=== PATIENT | female | born 1945 | race Caucasian/White ===

== ENCOUNTER 2016-11-29 16:13 | Emergency (ER) | payer MEDICARE ==
[~2016-11-29] VITALS: Ht 144.8 cm; Wt 76.8 kg
[~2016-11-29 16:13] MED LIST: ESTR2TAB2 PO; FLUT16SP2 NS; HYDR-3797 PO; HYDR25TA4 PO; LISI40TA PO; METH750T3 PO; PREG75CA PO; TRAZ150T72 PO; VENL75TA3 PO
[2016-11-29 16:52] VITALS: BP 185/101; PULSE 79; RESP 16; O2SAT 99
--- NOTE | 2016-11-29 17:42 | DRSVH ---
PROCEDURE: X-RAY PELVIS W/LAT HIP (RT) ([id number]) INDICATIONS: fall TECHNIQUE: AP pelvis with lateral view(s) of the right hip(s). COMPARISON: None. FINDINGS: Bones: No fractures or dislocations. Pelvic ring appears intact. No suspicious bony lesions. Ther e are bilateral total hip arthroplasties present. Soft tissues: The visualized bowel gas pattern is normal. No suspicious soft tissue calcifications. IMPRESSION: No fracture of the pelvic ring or right hip is seen. Dictated by: Ron De Luna M.D. on 11/29/2016 at 17:39 Approved by: Ron De Luna M.D. on 11/29/2016 at 17:40
--- NOTE | 2016-11-29 20:55 | ED.REPORT ---
HPI-General Illness Date of Service Nov 29, 2016 ED Provider: John Dacosta MD Pt is a 71 year old female with a history of hypertension and degenerative joint disease who presents to the ED c/o constant right hip pain s/p falling onset two days ago. She states that she stumbled, turned wrong, and fell on her hip. She reports that her pain has progressively worsened and is exacerbated by walking and bearing weight. She describes her pain as tight "muscle spasm" and rates the severity now as 7/10 and 8/10 at its worst. She denies lightheadedness , LOC, chest pain, SOB, fever, chills, SOB, palpitations, diarrhea, abdominal pain, vision changes, headache, weakness on one side, or any other symptoms. Nursing Notes Stated Complaint: RIGHT HIP PAIN, FALL Chief Complaint: Extremity Trauma Nursing Notes Reviewed: Yes Allergies: Coded Allergies: TAPE (Verified Allergy, Severe, Blisters, 08/28/13) acetaminophen (Unverified Adverse Reaction, Severe, ITCHING (FROM HYDROCODONE), 08/28/13) codeine (Unverified Adverse Reaction, Severe, ITCHING, 08/28/13) hydrocodone (Verified Adverse Reaction, Severe, itching, 08/28/13) morphine (Verified Adverse Reaction, Intermediate, nausea / nightmares, 08/28/13) Scheduled Estradiol (Estradiol) 2 Mg Tablet 2 MG PO DAILY Fluticasone Propionate (Flonase Nasal) 16 Gm Cougar.susp 2 SPRAYS NS DAILY Hydrochlorothiazide (Hydrochlorothiazide) 25 Mg Tablet 25 MG PO DAILY Lisinopril (Lisinopril) 40 Mg Tablet 40 MG PO DAILY Pregabalin (Lyrica) 75 Mg Capsule 75 MG PO BID Venlafaxine (Venlafaxine) 75 Mg Tablet 225 MG PO DAILYWM IMMEDIATE RELEASE-VERIFIED WITH [facility] Scheduled PRN Hydrocodone-Acetaminophen 5-325 mg (Hydrocodone-Acetaminophen 5-325 mg) 1 Each Tablet 1 TABLET PO Q4H PRN PRN For Pain Hydroxyzine Pamoate (HydrOXYzine Pamoate) 25 Mg Capsule 25 MG PO BID PRN PRN For Insomnia Methocarbamol (Methocarbamol) 750 Mg Tablet 750-1,500 MG PO Q12 PRN PRN For Spasm Trazodone (Trazodone) 150 Mg Tablet 150 MG PO HS PRN PRN prn General Time Seen by MD: 19:58 Chief Complaint Other (Right hip pain ) Hx Obtained From: Patient Arrived By: Walk-in Sudden in Onset?: No Onset Occurred: 2 days ago Symptom Duration: Constant Caused by: Fall on ground Location: : Hip right Quality: Painful Severity: Current: Pain level 7 out of 10 Severity: Maximum: Pain level 8 out of 10 Pertinent Negative: Pt denies other symptoms Exacerbated by: Moving affected area Recent Healthcare: No recent hospitalization, Recent doctor visit Similar Sx Previous: No Past Medical History Past Medical History Allergies Degenerative joint disease Depression Eczema Reports: Hypertension Past Surgical History Bilateral knee replacements Bilateral hip replacements Right shoulder replacement LIPO Reports: Cholecystectomy, Hysterectomy Social History Alcohol Use: Denies alcohol use Other Social History: Good social support Ambulatory Status Independent Review of Systems Full Review of Systems Constitutional: Denies: Chills, Fever Eyes: Denies: Blurred bilateral Respiratory: Denies: Shortness of breath Cardiovascular: Denies: Chest pain, Palpitations GI: Denies: Abdominal pain, Diarrhea Female: Denies: Incontinence Skin: Denies Rash Allergy / Immune: Denies: Itching Neurologic: Denies: Change LOC, Headache, Lightheaded, Vision change, Weakness Psychiatric: Denies: Change mental status Complete sys rev & neg: except as marked. Physical Exam Nursing note and vitals reviewed. Constitutional: Well-developed, well-nourished. Not diaphoretic. Head: Normocephalic and atraumatic. Mouth/Throat: Oropharynx is clear and moist. No oropharyngeal exudate. Eyes: EOM are normal. Pupils are equal, round, and reactive to light. Neck: Supple, no tracheal deviation. Cardiovascular: Normal rate, regular rhythm. Equal and intact distal pulses throughout. Pulmonary/Chest: Effort normal and breath sounds normal. No respiratory distress. Abdominal: Soft. No distension. There is no tenderness, rebound, or guarding. Bowel sounds present. Musculoskeletal: Pelvis is stable. Legs are normal length with strength normal and intact. Neurological: AOx3. Grossly nonfocal exam. Strength and sensation intact and equal to bilateral upper and lower extremities. Skin: Warm and dry, no rashes or pallor appreciated. Psychiatric: Appropriate mood and affect. Behavior appears normal. Vital Signs Vital Signs Date Time Temp Pulse Resp B/P Pulse Ox O2 Delivery O2 Flow Rate FiO2 11/29/16 22:54 68 199/84 96 Room Air 11/29/16 16:52 36.4 79 16 185/101 99 Room Air Initial VS: Reviewed Interpretation & Diagnostics X-Ray Interpretation Xray Interpretation: RIGHT HIP/PELVIS X-RAY IMPRESSION: No fracture of the pelvic ring or right hip is seen. Dictated by: Ron De Luna M.D. on 11/29/2016 at 17:39 Approved by: Ron De Luna M.D. on 11/29/2016 at 17:40 X-Ray Ordered: Pelvis, Hip right Interpretation / Wet Read by: Interpret - Radiologist Re-Eval/Medical Decision Med Decision/Clinical Course In summary, 71-year-old female presenting to the ED for evaluation of right hip pain after a fall 2 days ago. Neurovascularly intact. Patient describes a clear mechanical etiology and no reason to pursue a medical workup for syncope/ increased falls at this time. X-ray of the patient's hip is negative for acute fracture. She is able to ambulate here in the emergency department. Plan discharge home with very careful return precautions, PCP follow-up in the next 1 -2 days. Patient agreeable to the plan as stated, no further questions. Source of Hx: Old records Time of Eval: 21:28 Re-Evaluation/Progress Note: Discussed plan for discharge. Patient understands and agrees with plan. F/U instructions and RTER warnings given. All questions addressed at this time. Counseled Regarding: Diagnosis, Need for follow-up, When/why to return to ED Discharge & Departure Primary Impression: Right hip pain Disposition: Home Discharge Condition All VS Reviewed: Yes Condition: Stable Patient Instructions: Hip Pain (ED) Additional Instructions: Thank you for allowing us to be a part of your care in the ED today. Your emergency department results, including hip x-ray and labs, are reassuring. I do not think that there is an emergent cause for your symptoms today that would require admission to the hospital. Please schedule a follow up appointment with your primary care physician tomorrow for a recheck. Please return to the emergency department for any new or worsening symptoms including any vomiting, increased leg pain, abdominal pain, shortness of breath , chest pain, one sided weakness/numbness, fevers, or chills, or if there's anything else of concern to you. Referrals: Mathieu Santillan (PCP) Scribe Attestation Portions of this note were transcribed by Arielle Eaton. I, Dr. Dacosta, personally performed the history, physical exam and medical decision-making; I reviewed and confirmed the accuracy of the information in the transcribed note. copies to: Mathieu Santillan William B MD Nov 29, 2016 20:55 Arielle Eaton Nov 29, 2016 21:28
[2016-11-29] MEDS ORDERED: HYDR-4003 PO (22:05)
[2016-11-29 22:54] VITALS: BP 199/84; PULSE 68; O2SAT 96
== END 2016-11-29 22:30 | disposition home or self-care (01) ==
LOC: SED 16:13
DX: M25.551 Pain in right hip (principal); W01.0XXA Fall on same level from slipping, tripping and stumbling without subsequent striking against object, initial encounter; Y93.01 Activity, walking, marching and hiking; Y99.8 Other external cause status; Y92.89 Other specified places as the place of occurrence of the external cause; I10 Essential (primary) hypertension; Z96.643 Presence of artificial hip joint, bilateral; Z96.611 Presence of right artificial shoulder joint; Z96.653 Presence of artificial knee joint, bilateral; Z90.89 Acquired absence of other organs; Z90.49 Acquired absence of other specified parts of digestive tract; Z87.39 Personal history of other diseases of the musculoskeletal system and connective tissue; Z88.5 Allergy status to narcotic agent; Z88.6 Allergy status to analgesic agent
CPT/HCPCS: 73501; 96372; 99284; J1885